=== PATIENT | female | born 1995 | race Caucasian/White ===

== ENCOUNTER 2017-11-07 14:13 | Outpatient (CLI) | payer MEDICAID, SELFPAY ==
[2017-11-07 14:28] VITALS: BMI 31.6
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
== END 2017-11-07 17:25 | disposition home or self-care (01) ==
LOC: WPOUT 14:20 → WP 14:20
PROVIDERS: Visit Provider Obstetrics & Gynecology
DX: Z04.1 Encounter for examination and observation following transport accident (principal); O76 Abnormality in fetal heart rate and rhythm complicating labor and delivery; Z3A.33 33 weeks gestation of pregnancy
CPT/HCPCS: 59025; 59050; 99218; G0378

== ENCOUNTER 2017-11-22 07:30 | Outpatient (CLI) | payer MEDICAID, SELFPAY ==
[2017-11-22 08:02] VITALS: BMI 31.4
--- NOTE | 2017-11-22 09:52 | PCM.HP.OB ---
- Problem List (1) False labor before 37 completed weeks of gestation in third trimester Status: Acute History Date of Admission: 11/22/17 Final CASEY: 12/24/17 Final CASEY Source: US <20 weeks Gestational age: 35 Weeks and 3 Days History of this : Patient presents reporting ctx since 0530 AM that got closer together and stronger. Patient is 35.3 weeks by LMP dating and confirmed by 1st trimester u/s. Patient denies any LOF or VB. Patient reports +FM. Pertinent Past Medical History: Hx depression and PP depression - had stopped medication at beginning of , restarted Zoloft at 19 weeks gestation. Allergies latex Allergy (Verified 04/27/17 20:18) Hives Zoloft 50mg PO daily PNV Smoking Status: Never smoker Alcohol: None Drug Use: none Number of Fetus(es): 1 Review of Systems Unable to obtain accurate/complete ROS d/t: Patient discharged to home prior to this provider seeing patient Physical Exam Vitals: NST Category I - baseline 130, moderate variability, no decels, + accels. Few irregular contractions on tocometer, 1 ctx mildly palpable ovr 30 minutes. See nurse note for vital signs and PE Abdomen: Appropriate for Gestational Age Presentation: Cephalic Cervix Dilation (cm): 1 Station: -3 Effacement (%): 0 - Exam done by RN 1/0%/-4 Assessment/Plan A: 22 y/o @ 35.3 wks, R/O PTL - false labor diagnosed P: 1) Discharge patient to home 2) PTL precautions reviewed 3) RTC at [facility] as scheduled for dileep Hayes CNM
--- NOTE | 2017-11-22 10:02 | HP.PCM_ITS ---
- Problem List (1) False labor before 37 completed weeks of gestation in third trimester Status: Acute History Date of Admission: 11/22/17 Final CASEY: 12/24/17 Final CASEY Source: US <20 weeks Gestational age: 35 Weeks and 3 Days History of this : Patient presents reporting ctx since 0530 AM that got closer together and stronger. Patient is 35.3 weeks by LMP dating and confirmed by 1st trimester u/ s. Patient denies any LOF or VB. Patient reports +FM. Pertinent Past Medical History: Hx depression and PP depression - had stopped medication at beginning of , restarted Zoloft at 19 weeks gestation. Allergies latex Allergy (Verified 04/27/17 20:18) Hives Zoloft 50mg PO daily PNV Smoking Status: Never smoker Alcohol: None Drug Use: none Number of Fetus(es): 1 Review of Systems Unable to obtain accurate/complete ROS d/t: Patient discharged to home prior to this provider seeing patient Physical Exam Vitals: NST Category I - baseline 130, moderate variability, no decels, + accels. Few irregular contractions on tocometer, 1 ctx mildly palpable ovr 30 minutes. See nurse note for vital signs and PE Abdomen: Appropriate for Gestational Age Presentation: Cephalic Cervix Dilation (cm): 1 Station: -3 Effacement (%): 0 - Exam done by RN 1/0%/-4 Assessment/Plan A: 22 y/o @ 35.3 wks, R/O PTL - false labor diagnosed P: 1) Discharge patient to home 2) PTL precautions reviewed 3) RTC at [facility] as scheduled for dileep Hayes CNM
== END 2017-11-22 09:00 | disposition home or self-care (01) ==
LOC: WPOUT 07:30 → WP 07:31
PROVIDERS: Visit Provider Obstetrics & Gynecology
DX: O47.1 False labor at or after 37 completed weeks of gestation (principal); O99.344 Other mental disorders complicating childbirth; F32.9 Major depressive disorder, single episode, unspecified; Z3A.35 35 weeks gestation of pregnancy; Z37.0 Single live birth
CPT/HCPCS: 59025; 99218; G0378

== ENCOUNTER 2017-12-14 17:10 | Outpatient (CLI) | payer MEDICAID, SELFPAY ==
[2017-12-14 17:30] VITALS: BMI 34.7
[2017-12-14 17:59] LABS: Hematocrit 30.9 % (37-47); Hemoglobin 10.2 g/dl (12.0-15.0); Mean Corpuscular Hgb 27.9 pg (27.0-32.0); Mean Corpuscular Volume 84.4 fL (81-99); Mean Platelet Vol. 10.2 fl (6.2-12.0); Platelet Count 200 K/mm3 (150-450); RBC Distribution Width CV 14.1 % (11.6-14.6); RBC Distribution Width SD 41.9 fl (35.1-43.9); Red Blood Count 3.66 M/mm3 (4.2-5.4); White Blood Count 11.1 K/mm3 (4.4-11.0)
[2017-12-14 18:00] LABS: Scan Indicated on CBC? Y/N NO
[2017-12-14 18:02] LABS: International Normalized Ratio 1.1; Prothrombin Time (Protime)PT. 14.3 SECONDS (11.7-14.9)
[2017-12-14 18:03] LABS: Partial Thromboplast Time 26.9 Seconds (24.1-36.2)
--- NOTE | 2017-12-14 18:10 | OB.TRI.NOTE ---
History of Present Illness Date of Service: 12/14/17 Reason For Visit: [facility] Date of Service: 12/14/17 Final CASEY: 12/24/17 Gestational age: 38 Weeks and 4 Days Home Medications Medication Instructions Recorded Pnv95/Ferrous Fumarate/FA 1 each PO DAILY #90 tablet 05/29/16 [ Formula] Sertraline HCl [Zoloft] 50 mg PO DAILY 11/22/17 Allergies latex Allergy (Verified 04/27/17 20:18) Hives NST - FHR Rate Baby A Baseline: 135 Variability:: Moderate Accelerations:: 15 x 15 Decelerations:: None NST Reactive:: Yes Uterine Activity:: quiet Impression/Plan Reactive NST for elevated BP in BP's & labs at [facility] normal NO evidence preE
[2017-12-14 18:12] LABS: Protein, Urine (Random) 18.8 mg/dL (<11.9); Protein:Creat Ratio 214 mg/g CRE (0-200)
--- NOTE | 2017-12-14 18:13 | OB.TRI.HP_ITS ---
History of Present Illness Date of Service: 12/14/17 Reason For Visit: [facility] Date of Service: 12/14/17 Final CASEY: 12/24/17 Gestational age: 38 Weeks and 4 Days Home Medications Medication Instructions Recorded Pnv95/Ferrous Fumarate/FA 1 each PO DAILY #90 tablet 05/29/16 [ Formula] Sertraline HCl [Zoloft] 50 mg PO DAILY 11/22/17 Allergies latex Allergy (Verified 04/27/17 20:18) Hives NST - FHR Rate Baby A Baseline: 135 Variability:: Moderate Accelerations:: 15 x 15 Decelerations:: None NST Reactive:: Yes Uterine Activity:: quiet Impression/Plan Reactive NST for elevated BP in BP's & labs at [facility] normal NO evidence preE
[2017-12-14 18:18] LABS: AST(SGOT) 13 U/L (15-37); Alanine Aminotransfer ALT/SGPT 11 U/L (13-56); Creatinine, Serum 0.56 mg/dL (0.55-1.02); EST Glomerular Filtration Rate 142 mL/min (>60); Est Glom Filt Rate - Afr Amer 172 mL/min (>60); Estimated Creatinine Clearance 116.89 ml/min; Uric Acid 5.1 mg/dL (2.6-6.0)
== END 2017-12-14 18:30 | disposition home or self-care (01) ==
LOC: WPOUT 17:22 → WP 17:22
PROVIDERS: Visit Provider Obstetrics & Gynecology
DX: O26.893 Other specified pregnancy related conditions, third trimester (principal); R03.0 Elevated blood-pressure reading, without diagnosis of hypertension; Z3A.38 38 weeks gestation of pregnancy
CPT/HCPCS: 59050; 82565; 82570; 84156; 84450; 84460; 84550; 85027; 85610; 85730; 99218; G0378

== ENCOUNTER 2017-12-16 22:40 | Outpatient (CLI) | payer MEDICAID, SELFPAY ==
[2017-12-16 23:14] VITALS: BMI 32.8
[2017-12-16] MEDS: Acetaminophen 500 MG Tablet 1000 MG PO (23:49)
[2017-12-17 00:15] LABS: Hematocrit 30.5 % (37-47); Hemoglobin 10.1 g/dl (12.0-15.0); International Normalized Ratio 1.1; Mean Corp Hgb Conc 33.1 g/gl (32-36); Mean Corpuscular Volume 84.5 fL (81-99); Mean Platelet Vol. 10.5 fl (6.2-12.0); Platelet Count 206 K/mm3 (150-450); Prothrombin Time (Protime)PT. 14.5 SECONDS (11.7-14.9); RBC Distribution Width CV 14.4 % (11.6-14.6); Red Blood Count 3.61 M/mm3 (4.2-5.4); Scan Indicated on CBC? Y/N NO; White Blood Count 11.5 K/mm3 (4.4-11.0)
[2017-12-17 00:16] LABS: Partial Thromboplast Time 26.5 Seconds (24.1-36.2)
[2017-12-17 00:22] LABS: Protein, Urine (Random) 8.3 mg/dL (<11.9); Protein:Creat Ratio 221 mg/g CRE (0-200)
[2017-12-17 00:30] LABS: AST(SGOT) 12 U/L (15-37); Alanine Aminotransfer ALT/SGPT 10 U/L (13-56); Creatinine, Serum 0.47 mg/dL (0.55-1.02); EST Glomerular Filtration Rate 174 mL/min (>60); Est Glom Filt Rate - Afr Amer 210 mL/min (>60); Estimated Creatinine Clearance 152.68 ml/min; Uric Acid 4.6 mg/dL (2.6-6.0)
--- NOTE | 2017-12-17 00:38 | OB.TRI.NOTE ---
History of Present Illness Date of Service: 12/17/17 Was patient seen by the physician?: Yes Reason For Visit: HEADACHE Date of Service: 12/17/17 Final CASEY: 12/24/17 Final CASEY Source: LMP Gestational age: 39 Weeks and 0 Days History of Present Illness: Presented this evening for headache. Patient complaint of headache that has been on and off throughout the day. Headache with some blurry vision bilaterally but no scotoma. Headache has also been occuring over the last week. Was seen in L&D on 12/14/17 and D/C home, labs normal. Limited water intake today and did not take anything for relief. Rates 5/10. Denies any contractions, vaginal bleeding, leakage of fluid. Home Medications Medication Instructions Recorded Pnv95/Ferrous Fumarate/FA 1 each PO DAILY #90 tablet 05/29/16 [ Formula] Sertraline HCl [Zoloft] 50 mg PO DAILY 11/22/17 Allergies latex Allergy (Verified 12/16/17 23:16) Hives Physical Exam General: Alert, Oriented x3, No apparent distress Cardiovascular: Regular rate, Regular Rhythm, No murmurs Lungs: Clear to auscultation, No rhonchi, No wheeze Abdomen: Bowel Sounds Present, Soft, Non Tender, Gravid, - - No RUQ pain Extremities:: No edema, Deep tendon reflexes - +2/4 bilateal patellar. Clonus negative bilaterally. Presentation: Cephalic Cervix Dilation (cm): 4 Station: -2 Effacement (%): 40 NST - FHR Rate Baby A Baseline: 135 Variability:: Moderate Accelerations:: 15 x 15 Decelerations:: None NST Reactive:: Yes FHR Category:: Category I Uterine Activity:: Irregular Impression/Plan A: 22 year old at 38w6d by LMP Headache P: 1) Evaluated patient in triage. At this time, patient has no signs of pre-eclampsia. CMP, uric acid, CBC, pro/crea ratio all normal limits. 2) PO hydrated, Tylenol 1000mg PO once, Zofran 4mg ODT 3) Reviewed Pre-E precautions and labor instructions reviewed and when to call. 4) Follow up in office on Monday.
--- NOTE | 2017-12-17 00:49 | OB.TRI.HP_ITS ---
History of Present Illness Date of Service: 12/17/17 Was patient seen by the physician?: Yes Reason For Visit: HEADACHE Date of Service: 12/17/17 Final CASEY: 12/24/17 Final CASEY Source: LMP Gestational age: 39 Weeks and 0 Days History of Present Illness: Presented this evening for headache. Patient complaint of headache that has been on and off throughout the day. Headache with some blurry vision bilaterally but no scotoma. Headache has also been occuring over the last week. Was seen in L&D on 12/14/17 and D/C home, labs normal. Limited water intake today and did not take anything for relief. Rates 5/10. Denies any contractions , vaginal bleeding, leakage of fluid. Home Medications Medication Instructions Recorded Pnv95/Ferrous Fumarate/FA 1 each PO DAILY #90 tablet 05/29/16 [ Formula] Sertraline HCl [Zoloft] 50 mg PO DAILY 11/22/17 Allergies latex Allergy (Verified 12/16/17 23:16) Hives Physical Exam General: Alert, Oriented x3, No apparent distress Cardiovascular: Regular rate, Regular Rhythm, No murmurs Lungs: Clear to auscultation, No rhonchi, No wheeze Abdomen: Bowel Sounds Present, Soft, Non Tender, Gravid, - - No RUQ pain Extremities:: No edema, Deep tendon reflexes - +2/4 bilateal patellar. Clonus negative bilaterally. Presentation: Cephalic Cervix Dilation (cm): 4 Station: -2 Effacement (%): 40 NST - FHR Rate Baby A Baseline: 135 Variability:: Moderate Accelerations:: 15 x 15 Decelerations:: None NST Reactive:: Yes FHR Category:: Category I Uterine Activity:: Irregular Impression/Plan A: 22 year old at 38w6d by LMP Headache P: 1) Evaluated patient in triage. At this time, patient has no signs of pre- eclampsia. CMP, uric acid, CBC, pro/crea ratio all normal limits. 2) PO hydrated, Tylenol 1000mg PO once, Zofran 4mg ODT 3) Reviewed Pre-E precautions and labor instructions reviewed and when to call. 4) Follow up in office on Monday.
[2017-12-17] MEDS: Ondansetron ODT 4 MG Tablet PO (00:56)
[2017-12-17 01:15] VITALS: RESP 18
== END 2017-12-17 01:15 | disposition home or self-care (01) ==
LOC: WPOUT 23:13 → WP 23:23
PROVIDERS: Advanced Practice Midwife; Visit Provider Obstetrics & Gynecology
DX: O26.893 Other specified pregnancy related conditions, third trimester (principal); R51 Headache; Z3A.38 38 weeks gestation of pregnancy
CPT/HCPCS: 36415; 59025; 59050; 82565; 82570; 84156; 84450; 84460; 84550; 85027; 85610; 85730; 99218; G0378

== ENCOUNTER 2017-12-27 20:05 | Inpatient (IN) | payer MEDICAID, SELFPAY ==
[2017-12-27 15:46] VITALS: BMI 32.5
--- NOTE | 2017-12-27 18:09 | OB.TRI.HP_ITS ---
History of Present Illness Date of Service: 12/27/17 Was patient seen by the physician?: Yes Reason For Visit: DECREASED MOVEMENT Date of Service: 12/27/17 Final CASEY: 12/24/17 Final CASEY Source: US <20 weeks Gestational age: 40 Weeks and 3 Days History of Present Illness: Patient presents to triage today reporting decreased movement. Patient reports her grandmother recently and patient has felt very stressed. Patient stopped her Zoloft medication on Monday also noting, I've just forgotten to take it. Patient denies any cramping, contractions, vaginal bleeding or loss of amniotic fluid. Home Medications Medication Instructions Recorded Pnv95/Ferrous Fumarate/FA 1 each PO DAILY #90 tablet 05/29/16 [ Formula] Sertraline HCl [Zoloft] 50 mg PO DAILY 11/22/17 Allergies latex Allergy (Verified 12/27/17 15:47) Hives - Pertinent Past Medical History Pertinent Past Medical History: Hx of Depression and PP Depression after her last delivery - patient has been taking Zoloft 50mg PO daily, last dose Monday Patient had one transient episode of HTN of that occurred at 38 weeks - prolonged triage at L+D, preeclampsia labs and urine PC ratio drawn and were WNL. Physical Exam Vitals: See Nursing Note for Vital Sign - patient was normotensive and afebrile FHT baseline 140, moderate variability, + accels, no decels Ctx irregular q 10-20 minutes, mildly palpable General: Alert, Oriented x3, No apparent distress Cardiovascular: Regular rate, Regular Rhythm Lungs: Clear to auscultation Abdomen: Gravid, Appropriate for Gestational Age Extremities:: No edema Estimated gestational size: Appropriate for gestational size - Baby is ROT by Dax's Presentation: Cephalic - confirmed by ultrasound as head overriding pubic bone. Cervix Dilation (cm): 4.5 Station: -3 Effacement (%): 40 NST - FHR Rate Baby A Baseline: 140 Variability:: Moderate Accelerations:: 15 x 15 Decelerations:: None NST Reactive:: Yes, Appropriate for gestational age FHR Category:: Category I Uterine Activity:: Irregular Impression/Plan A: 22 y/o @ 40.3 weeks, Decreased Movement, Category I FHT P: 1 ) Consultation with Dr. Spencer - this is the 3rd report from this patient about decreased movement at the end of her . Recommendation from Dr. Spencer to keep patient at this time and plan to induce labor. 2) Anticipate admission and pitocin IV induction per protocol once entry level staff accountant to care for patient is available. Shoshana Hayes CNM
--- NOTE | 2017-12-27 21:11 | PCM.HP.OB ---
- Problem List (1) Decreased movement Status: Acute Qualifiers: Fetus number: single or unspecified fetus Trimester: third trimester Qualified Code(s): O36.8130 - Decreased movements, third trimester, not applicable or unspecified History Date of Admission: 12/27/17 Final CASEY: 12/24/17 Final CASEY Source: US <20 weeks Gestational age: 40 Weeks and 3 Days History of this : Patient reported decreased movement today. This is the 3rd evaluation of reported decreased movement for this patient. Patient denies VB, LOF or regular cramping/contractions. Pertinent Past Medical History: Hx of Depression and PP Depression - patient takes Zoloft 50mg PO daily. Last dose was on Monday per patient report. Patient's grandmother recently and patient has been forgetting to take the medication. Allergies latex Allergy (Verified 12/27/17 15:47) Hives PNV, Zoloft 50mg PO daily Smoking Status: Never smoker Alcohol: None Drug Use: none Number of Fetus(es): 1 Review of Systems Constitutional: Denies: Chills, Fever, Weight Change HEENT: Denies: Head Aches, Sinus Congestion, Sinus Drainage Cardiovascular: Denies: Chest Pain, Palpitations Respiratory: Denies: Cough, Shortness of breath at rest, Sputum production Gastrointestinal: Denies: Abdominal Pain, Nausea, Vomiting Genitourinary: Denies: Dysuria Gynecological: Denies: Breast symptoms, Vaginal discharge Musculoskeletal: Denies: Joint Pain, Joint Tenderness Skin: Denies: Rash, Wounds Neurological: Denies: Numbness, Tingling, Focal weakness Psychiatric: Denies: Anxiety, Depression, Homicidal Ideations, Suicidal Ideations Hematologic/ Lymphatic: Denies: Easy Bruising, Easy Bleeding Physical Exam General: Alert, Oriented x3, No apparent distress Cardiovascular: Regular rate, Regular Rhythm Lungs: Clear to auscultation Abdomen: Bowel Sounds Present, Gravid Extremities:: No edema Estimated gestational size: Appropriate for gestational size Presentation: Cephalic Cervix Dilation (cm): 4.5 - Confirmed cephalic by limited bedside u/s Station: -3 Effacement (%): 40 Assessment/Plan Active and Suspected Problems Decreased movement (Acute) A: 22 y/o @ 40.3 weeks, decreased movement, category I FHT P: 1) Admit patient, start IV at this time. 2) T+S, CBC to be drawn 3) Pitocin per protocol for labor induction to be started now 4) Anticipate 5) Dr. Spencer aware of induction and plan of care and is in agreement at this time. Shoshana Hayes CNM
[2017-12-27] MEDS: Lactated Ringers 1,000 ML 50 ML IV (21:50)
[2017-12-27] MEDS: Oxytocin 30 units/NS 500 ml 30 UNITS/500 ML IV.SOLN IV (22:00)
[2017-12-27 22:04] LABS: Hematocrit 32.1 % (37-47); Hemoglobin 10.3 g/dl (12.0-15.0); Mean Corp Hgb Conc 32.1 g/gl (32-36); Mean Corpuscular Hgb 27.2 pg (27.0-32.0); Mean Corpuscular Volume 84.9 fL (81-99); Mean Platelet Vol. 10.3 fl (6.2-12.0); Platelet Count 198 K/mm3 (150-450); RBC Distribution Width SD 46.8 fl (35.1-43.9); Red Blood Count 3.78 M/mm3 (4.2-5.4); Scan Indicated on CBC? Y/N NO
[2017-12-28] MEDS: Lactated Ringers 1,000 ML 50 ML IV ×4 (00:57→14:29)
--- NOTE | 2017-12-28 04:48 | PCM.PN.BLA ---
Progress Note S: Update received from nursing staff, patient tolerating contractions well. Patient denies LOF or feelings of rectal pressure. IV pitocin continues to infuse. O: VSS, Afebrile FHT baseline 130, moderate variability, +accels, no decels Ctx q 2-4 minutes, palpate moderately strong, Pitocin at 12 milliunits at this time SVE = 5.5/75/-3, head now palpable but ballotable A: 22 y/o @ 40.3 weeks, IOL for decreased FM at term, Pitocin Induction, Category I FHT P: 1) Continue present management 2) Consider AROM when head more engaged in pelvis 3) Anticipate Shoshana Hayes CNM
--- NOTE | 2017-12-28 05:50 | PCM.PN.BLA ---
Progress Note Addendum: SVE done per patient wishes - SVE = 5.5/70/-2 now, head easily felt against cervix. AROM for clear fluid. Patient elects NCB, may consider nitrous oxide for pain relief. Declines epidural. Pitocin remains at 12 milliunits at this time. Shoshana Hayes CNM
[2017-12-28] MEDS: Ondansetron 4 MG/2 ML Vial IV (06:15)
[2017-12-28] MEDS: fentaNYL-bupivacaine (epidural) 100 ML BAG EPIDURAL ×3 (07:48→17:04)
--- NOTE | 2017-12-28 07:58 | PCM.PN.BLA ---
Progress Note Patient getting comfortable with epidural cvx - /-1 FSE & IUPC placed fhts 140 with mod variability, accels, occ variables; overall reassuring tocos Q 2 min A&P: continue pitocin induction
[2017-12-28] MEDS: Amnioinfusion- 0.9% NS 1,000 ML IV.SOLN. 200 ML INTRA-UTER (08:16)
--- NOTE | 2017-12-28 13:43 | PCM.PN.BLA ---
Progress Note S: Patient comfortable with epidural O: cvx - 6-7/80/-1 per RN fhts 140 with mod variability, variables, accels - overall reassuring tocos Q2-3 min A&P: cont pit induction cont amnioinfusion
[2017-12-28] MEDS: Oxytocin 30 units/NS 500 ml 30 UNITS/500 ML IV.SOLN 334 UNITS IV (19:27)
--- NOTE | 2017-12-28 19:48 | PCM.OB.VAG ---
Vaginal Delivery Maternal Presentation: Medically Indicated Induction Amniotic Membrane Rupture Type: Artificial Amniotic Fluid Description: Clear Final CASEY: 12/24/17 Gestational age: 40 Weeks and 4 Days Date of Procedure: 12/28/17 Pre-Operative Diagnosis: post-dates, decreased FM Post-Operative Diagnosis: post-dates, decreased FM Surgery/ Procedure Performed: Spontaneous Vaginal Delivery Type of Anesthesia: Epidural Description of Procedure: Patient c/c/+2 and put in stirrups. She was prepped & draped. She pushed well to deliver head. Gentle traction was placed on head to allow delivery of the anterior & posterior shoulders. No excess traction placed on head. Body delivered easily & infant placed on maternal abdomen. 3vc clamped & cut in delayed fashion. Placenta delivered with gentle traction. Good uterine tone obtained. Presentation: DANIEL Placental Delivery Description: Expressed Placenta Disposition: [facility] Cord Vessel Description: 3 Vessels Cord Entanglement: Around neck x 1, loose Estimated Blood Loss: 200ml A gender: Female (1 minute): 8 (5 minute): 9 Episiotomy Description: None Laceration: 1st degree - vaginal - repaired with 3-0 vicryl Medications given after delivery: IV Pitocin Complications: None
[2017-12-28] MEDS: Oxytocin 30 units/NS 500 ml 30 UNITS/500 ML IV.SOLN 167 UNITS IV (19:57)
[2017-12-28] MEDS: 0.9% Saline Lock 10 ML Syringe IV (21:09)
[2017-12-28] MEDS: Ibuprofen 600 MG Tablet PO (23:04)
[2017-12-29] VITALS (7 sets, daily range): BP systolic 113–150; BP diastolic 62–85; PULSE 84–118; RESP 16–20; TEMP 36.3–37.1; O2SAT 95–98
[2017-12-29] MEDS: Ibuprofen 600 MG Tablet PO ×3 (06:38→20:32)
--- NOTE | 2017-12-29 09:02 | PCM.PROGNOTE ---
Patient Problems: Active and Suspected Problems Decreased movement (Acute) Subjective: Doing well per patient and nursing staff. Ambulating and taking PO without difficulty. Voiding and passing flatus. without difficulty. Denies headache, visual changes, chest pain, shortness of breath, leg pain, increased vaginal bleeding or clots. Discharge home tomorrow. - Physical Exam General: Alert, Oriented x3, Cooperative Lungs: Clear to auscultation, Normal air movement, No rhonchi, No wheeze Cardiovascular: Regular rate, Regular Rhythm, No murmurs Abdomen: Bowel Sounds Present, Soft, Non Tender, - - Fundus firm 2 below U Extremities: No edema Psych/Mental Status: Normal Affect, Appropriate Vital Signs Temp Pulse Resp BP Pulse Ox 98.7 F 84 16 113/62 98 12/29/17 04:00 12/29/17 04:00 12/29/17 04:00 12/29/17 04:00 12/29/17 00:08 Oxygen Delivery Method Room Air Weight: 183 lb 13.848 oz Body Mass Index (BMI) 32.5 Intake and Output for Last 24 Hours 12/27/17 12/28/17 12/29/17 23:59 23:59 23:59 Intake Total 8162 / 8162 Output Total 3400 / 3400 900 / 900 Balance 4762 / 4762 -900 / -900 Medical Necessity - Tobacco Use Smoking Status: Never smoker Assessment/Plan Active and Suspected Problems Decreased movement (Acute) A: PPD #1 1st degree perineal laceration P: 1) Routine PP orders 2) Plan to discharge home tomorrow
--- NOTE | 2017-12-29 09:07 | DCINST_ITS ---
Discharge Diet: No Restrictions Discharge Activity: Return to Normal Activity, May not drive while taking narcotic pain medications., May Shower May resume sexual activity in: 4-6 weeks Weight Bearing Status: Weight bearing as tolerated Call your doctor if your incision/area has: Continuous Slow Oozing, Sudden Increased Bleeding, Increased Pain/ Swelling, Increased Redness, Foul Smelling Discharge, Swelling at the incision site Call your doctor if you observe: Fever of 101 or Higher, Numbness or Tingling, Change in Color, Inability to urinate, Inability to have a bowel movement, Using more than one pad per hour, Shortness of breath, Dizziness, Fainting spells, Swelling in the ankles, Chest pain, Prolonged hiccoughing, Increased palpitations (irregular heartbeat), Calf discomfort, Uncontrolled pain Additional Instructions: If you experience any of the following, contact your healthcare provider. * Bleeding that soaks a pad every hour for 2 hours * Fever 100.4 or higher * Unrelieved incision or abdominal pain * Swelling, redness, discharge or bleeding from your incision or episiotomy site * Your incision begins to separate * Problems urinating (including inability to urinate or burning while urinating) . * Visual changes * Severe headache * Flu-like symptoms * Pain or redness in one of both of your breasts * Pain, warmth, tenderness or swelling in your legs, especially the calf area * Frequent nausea and vomiting * Symptoms of depression or anxiety If you experience any of the following, call 911 or go to the nearest Emergency Room. * Chest pain * Problems breathing * Seizure activity * Partial or complete paralysis of a body part, slurred speech, weakness or drooping of the face, or a sudden inability to walk or hold your balance Allergies/Adverse Reactions: Allergies latex Allergy (Verified 12/27/17 15:47) Hives Medications to take at Discharge Pnv95/Ferrous Fumarate/FA [ Formula] 1 each PO DAILY #90 tablet Sertraline HCl [Zoloft] 50 mg PO DAILY 11/22/17 Please Follow Up With: Karley Spencer When: Call to make an appointment with your doctor in 6 weeks. If you had elevated Blood Pressure or 4th degree laceration you will need to be seen in 2 weeks. Primary Care Physician: Care Physician,No Primary [Primary Care Provider] -
[2017-12-29] MEDS: Sertraline 50 MG Tablet PO (10:17)
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
[2017-12-30 01:50] VITALS: BP 112/67; PULSE 75; RESP 18; TEMP 36.7; O2SAT 96
--- NOTE | 2017-12-30 07:56 | PCM.PN.OB ---
Patient Problems: Active and Suspected Problems Decreased movement (Acute) Subjective: pt seen at bedside, doing well. pt reports good pain control. lochia mild. - Physical Exam General: Alert, Oriented x3 Abdomen: Soft, Non Tender, Non-Distended, - - fundus firm Extremities: No Calf Tenderness Vital Signs Temp Pulse Resp BP Pulse Ox 98.0 F 75 18 112/67 96 12/30/17 01:50 12/30/17 01:50 12/30/17 01:50 12/30/17 01:50 12/30/17 01:50 Oxygen Delivery Method Room Air Weight: 83.4 kg Body Mass Index (BMI) 32.5 Intake and Output for Last 24 Hours 12/28/17 12/29/17 12/30/17 23:59 23:59 23:59 Intake Total 8162 / 8162 Output Total 3400 / 3400 900 / 900 Balance 4762 / 4762 -900 / -900 Medical Necessity - Tobacco Use Smoking Status: Never smoker Assessment/Plan Active and Suspected Problems Decreased movement (Acute) PPD#2, doing well routine care dc home
[2017-12-30 08:34] VITALS: BP 129/76; PULSE 89; RESP 18; TEMP 36.8; O2SAT 98
[2017-12-30] MEDS: Ibuprofen 600 MG Tablet PO (08:55)
--- NOTE | 2018-01-01 15:12 | CASEMGMT ---
Social Work - Labor and Delivery Unit Referral to [facility] in [place], as per discussion with MOB on Monday12-29-17. Spoke with Radha at [facility] counseling agency for referral. Radha will call MOB to set up appointment. No other services requested or indicated. -DEMAR Santiago, COMMUNITY CENTER WORKER
--- NOTE | 2018-01-02 21:21 | NURSING ---
late entry for 12/28/17 12/28/17 2300 Epidural cath d/c'd with blue tip intact. pt tolerated well
== END 2017-12-30 09:45 | disposition home or self-care (01) | DRG 373 ==
LOC: WP 12-28 12:41 → WPOUT 12-28 12:41
PROVIDERS: Advanced Practice Midwife; Admitting Provider Obstetrics & Gynecology; Visit Provider Obstetrics & Gynecology
DX: O36.8130 Decreased fetal movements, third trimester, not applicable or unspecified (principal); O48.0 Post-term pregnancy; O70.0 First degree perineal laceration during delivery; O69.81X0 Labor and delivery complicated by cord around neck, without compression, not applicable or unspecified; O99.344 Other mental disorders complicating childbirth; F32.9 Major depressive disorder, single episode, unspecified; F41.9 Anxiety disorder, unspecified; Z3A.40 40 weeks gestation of pregnancy; Z37.0 Single live birth
CPT/HCPCS: 59025; 59050; 76815; 85027; 86850; 86900; 99218; J7030; J7120; A4216; G0378; J2405

== ENCOUNTER → 2019-12-18 13:40 | Outpatient (CLI) | payer MEDICAID, SELFPAY ==
[2019-12-17 14:27] VITALS: BMI 31.6
--- NOTE | 2019-12-18 13:48 | US_ITS ---
STUDY: SECOND AND THIRD TRIMESTER OBSTETRICAL ULTRASOUND REASON FOR EXAM: Female, 24 years old. Anatomy scan. LMP: August 03, 2019. TECHNIQUE: Transabdominal TECHNICAL QUALITY: Adequate. PRIOR ULTRASOUND: None. FINDINGS: There is a single intrauterine fetus. The fetus is in a cephalic presentation. There is demonstrated cardiac activity with a heart rate of 146 bpm. There is a normal amniotic fluid volume. The largest amniotic fluid pocket measures 3.0 cm. The placenta is posterior in location and is not low lying. There are Grade 0 placental changes. The cervix measures 4.11 cm in length. The bilateral adnexal regions are normal. BIOMETRY: BPD: 4.39 cm: 19 weeks, 2 days HC: 16.59 cm: 19 weeks, 3 days AC: 13.26 cm: 18 weeks, 6 days FL: 2.96 cm: 19 weeks, 1 days CI: 78 FL/BPD: 67 FL/HC: FL/AC: 22 HC/AC: 1.25 age by current US: 19 weeks, 2 days. CASEY by current US: May 11, 2020. Estimated weight: 267 grams, +/- 39 grams, 17 %. Age by LMP: 19 weeks, 4 days. CASEY by LMP: May 11, 2020. ANATOMY: Gender: Indeterminant Cranium: Normal lateral ventricles. Normal choroid plexus. Normal cerebellum. Normal cisterna magna. Normal face, nose and lips. Chest: Normal 4-chamber heart. Abdomen/Pelvis: Normal diaphragm. Normal stomach. Normal abdominal wall. Normal cord insertion. Normal 3 vessel cord. Normal kidneys. Normal bladder. Spine: Normal cervical spine. Normal thoracic spine. Normal lumbar spine. Normal sacrum. Extremities: Normal bilateral upper extremities. Normal bilateral lower extremities. US/OB Anatomy Scan IMPRESSION: 1. Live single intrauterine at 19 weeks, 2 days. CASEY is May 11, 2020. 2. EFW 267 g. 3. Adequate amniotic fluid. 4. Posterior grade 0 placenta. 5. Vertex presentation. 6. No evidence of anatomic abnormality. Electronically Signed: Ashkan Mendez DO at 16:40 EDT Tel [phone], Service support ,
== END ==
PROVIDERS: Referring Provider Obstetrics & Gynecology; Visit Provider Obstetrics & Gynecology
DX: Z34.81 Encounter for supervision of other normal pregnancy, first trimester (principal)
CPT/HCPCS: 76805

== ENCOUNTER 2021-04-09 11:03 | Emergency (ER) | payer MEDICAID, SELFPAY ==
[2019-12-17 14:27] VITALS: BMI 31.6
[2021-04-09 11:04] VITALS: BP 122/62; PULSE 95; RESP 14; TEMP 36; O2SAT 97; BMI 31.4
--- NOTE | 2021-04-09 11:52 | CT_ITS ---
STUDY: CT ABDOMEN AND PELVIS WITHOUT CONTRAST REASON FOR EXAM: Female, 25 years old. Right flank pain. RADIATION DOSAGE (If Supplied By Facility): CTDIvol = ( 8.62 ) mGy, DLP = ( 454.59 ) mGycm TECHNIQUE: Transaxial images were obtained from the dome of the diaphragm to the symphysis pubis without oral contrast, and without intravenous contrast. Sagittal and coronal images were reconstructed. Individualized dose optimization techniques were used for this CT. COMPARISON: None. FINDINGS: The visualized lung bases are unremarkable. The visualized portions of the heart are within normal limits. Normal liver. Normal gallbladder and extrahepatic biliary system. Normal spleen. Normal pancreas. Normal bilateral adrenal glands. There is a 1 cm x 0.6 cm calculus in the right renal pelvis. There is evidence of a 7.5 mm calculus in the posterior calyx of the upper pole of the right kidney. Normal left kidney. Normal visualized stomach. Normal small intestine. Normal colon. The appendix is visualized and appears normal. Normal abdominal aorta. Normal inferior vena cava. Normal retroperitoneum. Normal urinary bladder. There is a small umbilical hernia containing fat. Minimal levoscoliosis. CT/Abdomen/Pelvis without Cont IMPRESSION: 1 cm x 0.6 cm calculus is seen in the right renal pelvis with mild right hydronephrosis. Electronically Signed: Fausto Avendano MD at 14:24 EDT , Service support ,
--- NOTE | 2021-04-09 11:53 | EDS_ITS ---
HPI History of Present Illness Chief Complaint: Flank Pain Narrative Narrative: 25-year-old female presenting with left flank pain. She states that this started about 2 weeks ago. It has been intermittent since then and is now more constant. Last night she states that she had trouble finding position of comfort and she experienced nausea. She has no history of kidney stones. She denies dysuria but states her urine has been dark. She states that when she drinks pop or tea it makes her pain worse and if she drinks water it does not hurt. She denies fever or chills. She denies change in bowel habits. PFSH PFSH Home Medications hydrocodone-acetaminophen 1 tab PO Q6H PRN PRN 3 Days #12 tablet 04/09/21 [Rx Last Taken Unknown] ondansetron 8 mg PO Q8H PRN PRN #20 tab 04/09/21 [Rx Last Taken Unknown] sulfamethoxazole-trimethoprim [Bactrim DS] 1 tab PO Q12H 10 Days #20 tab 04/09/21 [Rx Last Taken Unknown] Allergy/AdvReac Type Severity Reaction Status Date / Time latex Allergy Hives Verified 04/09/21 11:04 Social History Smoking Status: Never smoker ROS ROS ED Constitutional Constitutional ED: Denies chills, fever(s) or subjective Eyes Eyes: Denies blurry vision or diplopia ENT ENT ED: Denies rhinorrhea or sore throat Cardiovascular Cardiovascular: Denies chest pain or palpitations Respiratory/Chest Respiratory/Chest: Denies cough or dyspnea Gastrointestinal Gastrointestinal: Reports abdominal pain and nausea; Denies constipation or diarrhea Genitourinary Genitourinary ED: Reports other Details: Darkened urine Musculoskeletal Musculoskeletal: Denies arthralgias or myalgias Integumentary Denies abscess or rash Neurologic Neurologic: Denies headache(s) or weakness Psychiatric Psychiatric: Denies anxiety or depression EXAM Physical Exam Const Vital Signs: 04/09/21 11:04 04/09/21 13:10 04/09/21 15:20 Temperature 96.8 F L 96.9 F L Temperature Source Temporal Temporal Pulse Rate 95 90 Respiratory Rate 14 16 16 Blood Pressure 122/62 H 114/77 Blood Pressure Mean 82 89 Pulse Ox 97 98 Oxygen Delivery Method Room Air Room Air Positive well nourished General Appearance ED: NAD HEENT Reports moist mucous membranes Negative for trauma Eyes PERRL and EOMs intact bilaterally Neck no lymphadenopathy and supple Resp normal respiratory effort and clear to auscultation bilaterally Cardio regular rate and regular rhythm GI non-distended Palpation: soft and tender other (Right flank) Back/Spine no CVA tenderness Neuro oriented x3 and CN's II-XII intact bilaterally Sensorium / Orientation: alert Psych mental status grossly normal Skin no rashes or lesions noted and no wounds MDM MDM MDM Narrative Medical decision making narrative: Patient presenting with right flank pain which has been present for 2 weeks but more persistent over the last couple of days. She has not had a history of kidney stone. She is complaining of dark urine. Patient's lab work shows that she has no leukocytosis and her hemoglobin hematocrit are stable. Renal function is normal. On exam she has mild pain to palpation. She requested no pain medication or nausea medicine while she was here. Her vital signs are stable and she is afebrile. I did obtain a urinalysis which is positive for UTI and sent this for culture. Patient had CT abdomen pelvis without contrast which shows a 1 cm x 0.6 cm calculus in the right renal pelvis. Since we do not have urology director correctional agency today I did make a call to Dr. SHARPE at [facility] who felt that the patient had normal lab work and normal vital signs and did not look toxic that he could follow-up with her Monday. He recommended starting her on Bactrim with first dose in the ED. She was provided [place] and Zofran as needed. She was counseled that if she starts to have fever, nausea vomiting, intractable pain she should return to the ER immediately. She was also counseled that he will see her in office on Monday and plans to do shockwave lithotripsy. He requested a KUB which on my interpretation shows no acute abdominal pathology. A CD with her CT and her KUB were sent with her at his request. Impression: 1. Pyelonephritis 2. Right 1 cm x 0.6 cm kidney stone Lab Data Attestation: I reviewed the patient's lab results. Labs: Laboratory Results - last 24 hr 04/09/21 04/09/21 04/09/21 11:15 11:25 11:25 WBC 6.4 RBC 4.63 Hgb 13.1 Hct 40.6 MCV 87.7 MCH 28.3 MCHC 32.3 RDW Std Deviation 40.2 RDW Coeff of Rylie 12.5 Plt Count 197 MPV 10.7 Immature Gran % (Auto) 0.300 Neut % (Auto) 64.6 Lymph % (Auto) 27.0 [place] % (Auto) 7.0 Eos % (Auto) 0.8 Baso % (Auto) 0.3 Absolute Neuts (auto) 4.1 Absolute Lymphs (auto) 1.73 Nucleated RBC % 0 Sodium 140 Potassium 3.5 Chloride 106 Carbon Dioxide 25.0 Anion Gap 9 BUN 12 Creatinine 0.85 Estim Creat Clear Calc 82.24 Est GFR (MDRD) Af Amer 103 Est GFR (MDRD) Non-Af 85 BUN/Creatinine Ratio 14.1 Glucose 108 H Calcium 8.9 Urine Color Yellow Urine Clarity Turbid Urine pH 6.0 Ur Specific [place] 1.020 Urine Protein 30 H Urine Glucose (UA) Normal Urine Ketones Negative Urine Occult Blood 250 H Urine Nitrite Positive H Urine Bilirubin Negative Urine Urobilinogen Normal Ur Leukocyte Esterase 500 H Urine RBC 10-25 SEEN Urine WBC 50-100 SEEN Ur Squamous Epith Cells 0-5 SEEN Urine Bacteria 4+ Urine Mucus 0 SEEN Urine Test Negative Radiography Diagnostic Testing: Radiology Impression Abdomen/Pelvis CT 04/09/21 11:52 IMPRESSION: 1 cm x 0.6 cm calculus is seen in the right renal pelvis with mild right hydronephrosis. Electronically Signed: Fausto Avendano MD at 14:24 EDT , Service support , Discharge Plan Triage Chief Complaint: Flank Pain ED Provider: Bony Haney Dx/Rx/DC Orders Instructions: ED Pyelonephritis, Female (Adult), ED Kidney Stone w/ Colic Prescriptions: New hydrocodone-acetaminophen 5-325 mg tablet 1 tab PO Q6H PRN PRN (Reason: Pain) 3 Days Qty: 12 RF: 0 ondansetron 4 mg tablet,disintegrating 8 mg PO Q8H PRN PRN (Reason: Nausea) Qty: 20 RF: 0 sulfamethoxazole-trimethoprim [Bactrim DS] 800-160 mg tablet 1 tab PO Q12H 10 Days Qty: 20 RF: 0 Primary Care Provider: Care PhysicianAntonia Primary Referrals: John Sharpe [Other] - As soon as possible Care Physician,No Primary [Primary Care Provider] - Disposition Disposition: Home, Self Care
[2021-04-09 12:07] LABS: Absolute Lymphocyte Count 1.73 X10^3/uL (0.83-4.51); Absolute Neutrophil Count 4.1 X10^3/uL (2.0-7.7); Basophil# 0.02 X10^3/uL; Basophil% 0.3 % (0-1); Eosinophil# 0.05 X10^3/uL; Eosinophils% 0.8 % (0-5); Hematocrit 40.6 % (37-47); Hemoglobin 13.1 g/dL (12.0-15.0); Lymphocyte # 1.73 X10^3/ul (0.83-4.51); Mean Corp Hgb Conc 32.3 g/dL (32-36); Mean Corpuscular Hgb 28.3 pg (27.0-32.0); Mean Corpuscular Volume 87.7 fL (81-99); Mean Platelet Vol. 10.7 fl (6.2-12.0); Monocyte# 0.45 X10^3/uL; NRBC Flagged by Analyzer 0 % (0-5); Neutrophil # 4.13 X10^3/uL (2.7-7.7); Neutrophil % 64.6 % (47-70); Platelet Count 197 K/mm3 (150-450); RBC Distribution Width CV 12.5 % (11.6-14.6); RBC Distribution Width SD 40.2 fl (35.1-43.9); Red Blood Count 4.63 M/mm3 (4.2-5.4); White Blood Count 6.4 K/mm3 (4.4-11.0)
[2021-04-09 12:17] LABS: Anion Gap 9 (5-15); BUN 12 mg/dL (7-18); BUN/Creat Ratio 14.1 RATIO (10-20); Calcium,Total 8.9 mg/dL (8.5-10.1); Chloride 106 mmol/L (98-107); Creatinine, Serum 0.85 mg/dL (0.55-1.02); EST Glomerular Filtration Rate 85 mL/min (>60); Est Glom Filt Rate - Afr Amer 103 mL/min (>60); Estimated Creatinine Clearance 82.24 ml/min; Glucose 108 mg/dL (74-106); Potassium 3.5 mmol/L (3.5-5.1); Sodium Level 140 mmol/L (136-145)
[2021-04-09 12:52] LABS: Mucous, Urine 0 SEEN /hpf (<or=2+)
[2021-04-09 13:08] LABS: Color, Urine Yellow (Yellow); Glucose, Dipstick Normal (Normal); Ketone-Dipstick Negative (Negative); Leukocyte Esterase-Dipstick 500 /ul (Negative); Nitrite-Dipstick Positive (Negative); Occult Blood-Urine 250 /ul (Negative); Protein-Dipstick 30 mg/dl (Negative); Urine Bilirubin Dipstick Negative (Negative); Urine Clarity Turbid (Clear); Urine Urobilinogen Normal (Normal)
[2021-04-09 13:10] VITALS: RESP 16
[2021-04-09 13:43] LABS: White Blood Cells 50-100 SEEN /hpf (0-5)
[2021-04-09 13:44] LABS: Bacteria 4+ /hpf (None Seen); Internal QC Validated? YES +Cl - CLEAR BKGD; Red Blood Cells-Urine 10-25 SEEN /hpf (0-5); Squamous Epithelial Cells - UA 0-5 SEEN /hpf (5-10)
[2021-04-09 13:45] LABS: Pregnancy, Urine Negative Negative
[2021-04-09 15:20] VITALS: BP 114/77; PULSE 90; RESP 16; TEMP 36.1; O2SAT 98
--- NOTE | 2021-04-09 15:45 | RAD_ITS ---
STUDY: X-RAY - ABDOMEN/PELVIS REASON FOR EXAM: Female, 25 years old. Right flank pain. TECHNIQUE: Two AP supine views of the abdomen and pelvis. COMPARISON: CT 04/09/21 FINDINGS: There is no bowel obstruction. There is air and stool to the level of the rectum. There are no definite urinary calculi identified. The right renal stone seen on the earlier CT is not clearly visualized on this radiograph. The visualized osseous structures are within normal limits. RAD/Abdomen Single View (Portable) IMPRESSION: No bowel obstruction. No definite urinary calculi identified. Electronically Signed: John Perla MD at 16:33 EDT Tel , Service support ,
[2021-04-09] MEDS: Smz/Tmp Ds Tablet 1 TABLET PO (16:00)
== END 2021-04-09 16:31 | disposition home or self-care (01) ==
PROVIDERS: Emergency Provider Student in an Organized Health Care Education/Training Program
DX: N13.2 Hydronephrosis with renal and ureteral calculous obstruction (principal)
CPT/HCPCS: 74018; 74176; 80048; 81001; 81025; 85025; 87086; 87088; 87186; 99283; J7040; A4216

== ENCOUNTER 2021-07-19 22:03 | Emergency (ER) | payer MEDICAID, SELFPAY ==
[2021-07-19 22:04] VITALS: BP 112/68; PULSE 113; RESP 14; TEMP 37.4; O2SAT 100; BMI 28.3
[2021-07-19 23:19] VITALS: BP 91/68; PULSE 100; RESP 18; O2SAT 96
--- NOTE | 2021-07-19 23:41 | EKG12_ITS ---
Test Reason : Blood Pressure : / mmHG Vent. Rate : 097 BPM Atrial Rate : 097 BPM P-R Int : 134 ms QRS Dur : 094 ms QT Int : 342 ms P-R-T Axes : 052 013 039 degrees QTc Int : 434 ms Normal sinus rhythm Normal ECG Confirmed by DANNY WINTER, MART ([id number]), desk editor JARVIS PAZ ([id number]) on 07/20/2021 9:25:37 AM Referred By: Confirmed By:MART DELGADO MD
--- NOTE | 2021-07-19 23:42 | EX.ED.DYSGE1 ---
HPI <Dr. Akin Rodriguez DO - Last Filed: 07/20/21 00:16> History of Present Illness Chief Complaint: Confusion Informant: patient and spouse/S.O. Narrative Narrative: 25-year-old female presenting to the emergency department with her . They tell me that the patient had a bilateral tubal ligation at the [facility] on 07/08. They tell me that it was a same-day surgery she was reevaluated on 07/09 in the emergency room where she had blood work and a CAT scan. She followed up on Monday with her [employer]ICE. She states that she cannot remember exactly what he said but they reynaldo blood and after reviewing the CAT scan said that something did not seem right. They called today and they were told that the blood work seems normal. The patient notes vomiting diarrhea diffuse abdominal pain and fevers. She denies any runny nose sore throat cough. No shortness of breath. states she seems confused. He had to help her put her pants on. PFSH <Dr. Akin Rodriguez DO - Last Filed: 07/20/21 00:16> PFSH Home Medications hydrocodone-acetaminophen 1 tab PO Q6H PRN PRN 3 Days #12 tablet 04/09/21 [Rx Last Taken Unknown] ondansetron 8 mg PO Q8H PRN PRN #20 tab 04/09/21 [Rx Last Taken Unknown] sulfamethoxazole-trimethoprim [Bactrim DS] 1 tab PO Q12H 10 Days #20 tab 04/09/21 [Rx Last Taken Unknown] Allergy/AdvReac Type Severity Reaction Status Date / Time latex Allergy Hives Verified 04/09/21 11:04 Surgical History History of tubal ligation Social History (Updated 07/19/21 @ 23:[address] Akin Rodriguez DO) Smoking Status: Never smoker substance use type: does not use ROS <Dr. Akin Rodriguez DO - Last Filed: 07/20/21 00:16> ROS ED ROS Narrative Generalized weakness. Constitutional Constitutional ED: Reports chills and fever(s); Denies weight loss Eyes Eyes: Denies change in vision or diplopia ENT ENT ED: Denies ear pain, rhinorrhea or sore throat Cardiovascular Cardiovascular: Denies chest pain, orthopnea, palpitations or racing heartbeat Respiratory/Chest Respiratory/Chest: Denies cough, dyspnea or orthopnea Gastrointestinal Gastrointestinal: Reports abdominal pain, diarrhea, nausea and vomiting Genitourinary Genitourinary ED: Denies dysuria, hematuria or urinary frequency Musculoskeletal Musculoskeletal: Denies arthralgias or myalgias Integumentary Denies abscess or rash Neurologic Neurologic: Reports other Details: Reported confusion ; Denies headache(s) or weakness Psychiatric Psychiatric: Denies anxiety, depression, suicidal ideation or suicidal thoughts Endocrine Endocrinology: Denies polydipsia, polyphagia or polyuria Allergic/Immunologic Allergic/Immunologic ED: Denies mouth swelling, tongue swelling or urticaria EXAM <Dr. Akin Rodriguez, DO - Last Filed: 07/20/21 00:16> Physical Exam Const Vital Signs: 07/19/21 22:04 07/19/21 23:19 07/20/21 00:01 Temperature 99.3 F H 99.7 F H Temperature Source Temporal Oral Pulse Rate 113 H 100 96 Respiratory Rate 14 18 17 Blood Pressure 112/68 91/68 102/67 Blood Pressure Mean 82 75 78 Pulse Ox 100 96 96 Oxygen Delivery Method Room Air Room Air Room Air 07/20/21 01:16 07/20/21 02:50 07/20/21 03:15 Temperature 100 F H 99.2 F H Temperature Source Oral Oral Pulse Rate 101 H 96 90 Respiratory Rate 16 17 15 Blood Pressure 115/68 101/62 113/72 Blood Pressure Mean 83 75 85 Pulse Ox 97 97 96 Oxygen Delivery Method Room Air Room Air Room Air Positive well nourished and well developed General Appearance ED: well developed HEENT Reports normocephalic, head/scalp atraumatic, TM's clear and moist mucous membranes Negative for trauma Tympanic Membrane ED: Yes TM's clear Eyes PERRL and EOMs intact bilaterally Neck no lymphadenopathy, supple and no JVD Resp normal respiratory effort and clear to auscultation bilaterally Cardio regular rate and no murmurs Rate: tachycardic GI non-tender GI Narrative: Laparoscopic surgical sites appear clean dry and intact. Diffuse tenderness to palpation. Auscultation: normoactive bowel sounds Palpation: soft; Negative for guarding or rebound tenderness present Back/Spine no CVA tenderness and normal ROM Extremity normal to inspection General Extremety ED: Negative for edema General Extremity: Negative for edema Neuro oriented x3 and CN's II-XII intact bilaterally Neuro Narrative: Patient appears slow to answer questions. Sensorium / Orientation: alert Motor Exam: strength 5/5 throughout Psych mental status grossly normal Mood & Affect: Negative for depressed or tearful Skin no rashes or lesions noted and no wounds <Dr. Bony Haney, DO - Last Filed: 07/20/21 04:42> Physical Exam Const Vital Signs: 07/19/21 22:04 07/19/21 23:19 07/20/21 00:01 Temperature 99.3 F H 99.7 F H Temperature Source Temporal Oral Pulse Rate 113 H 100 96 Respiratory Rate 14 18 17 Blood Pressure 112/68 91/68 102/67 Blood Pressure Mean 82 75 78 Pulse Ox 100 96 96 Oxygen Delivery Method Room Air Room Air Room Air 07/20/21 01:16 07/20/21 02:50 07/20/21 03:15 Temperature 100 F H 99.2 F H Temperature Source Oral Oral Pulse Rate 101 H 96 90 Respiratory Rate 16 17 15 Blood Pressure 115/68 101/62 113/72 Blood Pressure Mean 83 75 85 Pulse Ox 97 97 96 Oxygen Delivery Method Room Air Room Air Room Air MDM <Dr. Akin Rodriguez, DO - Last Filed: 07/20/21 00:16> MDM MDM Narrative Medical decision making narrative: Patient and her refused to be checked for Covid because they did not believe that Covid is a plausible diagnosis. Try to explain to them she has fever confusion vomiting and diarrhea and she was recently in the hospital on multiple days. They do not consent to a Covid test. I informed them that we will go ahead and check things and if everything is negative she would most likely need to be discharged and they can follow-up. At this point we will obtain blood work and a CT scan of the abdomen pelvis as well as an EKG. Care of the patient will be turned over to the night physician for final disposition Lab Data Labs: Laboratory Results - last 24 hr 07/19/21 07/19/21 07/19/21 23:56 23:56 23:56 WBC 16.5 H RBC 4.15 L Hgb 11.7 L Hct 35.8 L MCV 86.3 MCH 28.2 MCHC 32.7 RDW Std Deviation 38.5 RDW Coeff of Rylie 12.0 Plt Count 349 MPV 9.1 Immature Gran % (Auto) 0.500 Neut % (Auto) 86.5 H Lymph % (Auto) 7.5 L [place] % (Auto) 5.2 Eos % (Auto) 0.1 Baso % (Auto) 0.2 Absolute Neuts (auto) 14.2 H Absolute Lymphs (auto) 1.24 Nucleated RBC % 0 Sodium 135 L Potassium 3.8 Chloride 100 Carbon Dioxide 29.0 Anion Gap 6 BUN 6 L Creatinine 0.69 Estim Creat Clear Calc 101.31 Est GFR (MDRD) Af Amer 131 Est GFR (MDRD) Non-Af 109 BUN/Creatinine Ratio 8.7 L Glucose 129 H Lactic Acid 0.7 Calcium 8.7 Total Bilirubin 0.50 AST 27 ALT 38 Alkaline Phosphatase 137 H Troponin I High Sens 6 Total Protein 7.7 Albumin 2.5 L Globulin 5.2 H Albumin/Globulin Ratio 0.5 L Serum , Qual Urine Color Urine Clarity Urine pH Ur Specific [place] Urine Protein Urine Glucose (UA) Urine Ketones Urine Occult Blood Urine Nitrite Urine Bilirubin Urine Urobilinogen Ur Leukocyte Esterase Urine RBC Urine WBC Ur Squamous Epith Cells Urine Bacteria Urine Mucus 07/19/21 07/20/21 23:56 00:40 WBC RBC Hgb Hct MCV MCH MCHC RDW Std Deviation RDW Coeff of Rylie Plt Count MPV Immature Gran % (Auto) Neut % (Auto) Lymph % (Auto) [place] % (Auto) Eos % (Auto) Baso % (Auto) Absolute Neuts (auto) Absolute Lymphs (auto) Nucleated RBC % Sodium Potassium Chloride Carbon Dioxide Anion Gap BUN Creatinine Estim Creat Clear Calc Est GFR (MDRD) Af Amer Est GFR (MDRD) Non-Af BUN/Creatinine Ratio Glucose Lactic Acid Calcium Total Bilirubin AST ALT Alkaline Phosphatase Troponin I High Sens Total Protein Albumin Globulin Albumin/Globulin Ratio Serum , Qual NEGATIVE Urine Color Yellow Urine Clarity Sl. Cloudy Urine pH 6.0 Ur Specific [place] 1.020 Urine Protein 15 H Urine Glucose (UA) Normal Urine Ketones Negative Urine Occult Blood 10 H Urine Nitrite Negative Urine Bilirubin Negative Urine Urobilinogen Normal Ur Leukocyte Esterase Negative Urine RBC 0-5 SEEN Urine WBC 0-5 SEEN Ur Squamous Epith Cells 5-10 SEEN Urine Bacteria 3+ Urine Mucus 2+ Radiography Diagnostic Testing: Clinical Impression(s) from Imaging Studies Abdomen/Pelvis CT 07/20/21 00:15 IMPRESSION: Rectouterine pouch abscess with extension into both fallopian tubes, concerning for tubo-ovarian abscesses. Electronically Signed: Teto Ruiz MD at 2:14 EDT Tel , Service support , Chest X-Ray 07/20/21 00:25 IMPRESSION: No acute abnormal cardiopulmonary finding. Electronically Signed: Teto Ruiz MD at 1:33 EDT Tel , Service support , EKG Initial EKG: Attestation: I personally reviewed and interpreted this EKG as follows: Interpretation: Sinus Rhythm Comments: Sinus rhythm with a ventricular rate of 97 bpm <Dr. Bony Haney, DO - Last Filed: 07/20/21 04:42> [facility] Narrative Medical decision making narrative: Dr. Haney dictating. Patient was signed out to me for follow-up on blood work and imaging. Patient does have a 16.5 white blood cell count with a left shift. Renal function and electrolytes are normal. LFTs are normal with exception of an elevated alkaline phosphatase of 137. Troponin is 6. Serum is negative. Lactic acid 0.7. Urinalysis is negative for infection. Patient CT of the abdomen pelvis shows a rectouterine pouch abscess with extension into both fallopian tubes concerning for tubo-ovarian abscesses. I was able to talk to Dr. Nascimenot who did her previous tubal ligation. He was happy to accept her to pulmonary in hospital. He recommended that I give her 1 g of Rocephin, 500 mg of Flagyl, 3 g of Unasyn. I will discuss this with primary hospital and arrange transfer. He did request that I send a urine GC chlamydia before the antibiotics are started and this was sent. Patient will be transferred to [facility]. She will have to wait on transport due to limited EMS transport. She will likely be transported after 6 AM. She will be monitored until the transfer. Impression: 1. Tubo-ovarian abscess Lab Data Attestation: I reviewed the patient's lab results. Labs: Laboratory Results - last 24 hr 07/19/21 07/19/21 07/19/21 23:56 23:56 23:56 WBC 16.5 H RBC 4.15 L Hgb 11.7 L Hct 35.8 L MCV 86.3 MCH 28.2 MCHC 32.7 RDW Std Deviation 38.5 RDW Coeff of Rylie 12.0 Plt Count 349 MPV 9.1 Immature Gran % (Auto) 0.500 Neut % (Auto) 86.5 H Lymph % (Auto) 7.5 L [place] % (Auto) 5.2 Eos % (Auto) 0.1 Baso % (Auto) 0.2 Absolute Neuts (auto) 14.2 H Absolute Lymphs (auto) 1.24 Nucleated RBC % 0 Sodium 135 L Potassium 3.8 Chloride 100 Carbon Dioxide 29.0 Anion Gap 6 BUN 6 L Creatinine 0.69 Estim Creat Clear Calc 101.31 Est GFR (MDRD) Af Amer 131 Est GFR (MDRD) Non-Af 109 BUN/Creatinine Ratio 8.7 L Glucose 129 H Lactic Acid 0.7 Calcium 8.7 Total Bilirubin 0.50 AST 27 ALT 38 Alkaline Phosphatase 137 H Troponin I High Sens 6 Total Protein 7.7 Albumin 2.5 L Globulin 5.2 H Albumin/Globulin Ratio 0.5 L Serum , Qual Urine Color Urine Clarity Urine pH Ur Specific [place] Urine Protein Urine Glucose (UA) Urine Ketones Urine Occult Blood Urine Nitrite Urine Bilirubin Urine Urobilinogen Ur Leukocyte Esterase Urine RBC Urine WBC Ur Squamous Epith Cells Urine Bacteria Urine Mucus 07/19/21 07/20/21 23:56 00:40 WBC RBC Hgb Hct MCV MCH MCHC RDW Std Deviation RDW Coeff of Rylie Plt Count MPV Immature Gran % (Auto) Neut % (Auto) Lymph % (Auto) [place] % (Auto) Eos % (Auto) Baso % (Auto) Absolute Neuts (auto) Absolute Lymphs (auto) Nucleated RBC % Sodium Potassium Chloride Carbon Dioxide Anion Gap BUN Creatinine Estim Creat Clear Calc Est GFR (MDRD) Af Amer Est GFR (MDRD) Non-Af BUN/Creatinine Ratio Glucose Lactic Acid Calcium Total Bilirubin AST ALT Alkaline Phosphatase Troponin I High Sens Total Protein Albumin Globulin Albumin/Globulin Ratio Serum , Qual NEGATIVE Urine Color Yellow Urine Clarity Sl. Cloudy Urine pH 6.0 Ur Specific [place] 1.020 Urine Protein 15 H Urine Glucose (UA) Normal Urine Ketones Negative Urine Occult Blood 10 H Urine Nitrite Negative Urine Bilirubin Negative Urine Urobilinogen Normal Ur Leukocyte Esterase Negative Urine RBC 0-5 SEEN Urine WBC 0-5 SEEN Ur Squamous Epith Cells 5-10 SEEN Urine Bacteria 3+ Urine Mucus 2+ Radiography Diagnostic Testing: Clinical Impression(s) from Imaging Studies Abdomen/Pelvis CT 07/20/21 00:15 IMPRESSION: Rectouterine pouch abscess with extension into both fallopian tubes, concerning for tubo-ovarian abscesses. Electronically Signed: Teto Ruiz MD at 2:14 EDT Tel , Service support , Chest X-Ray 07/20/21 00:25 IMPRESSION: No acute abnormal cardiopulmonary finding. Electronically Signed: Teto Ruiz MD at 1:33 EDT Tel , Service support , Discharge Plan Triage Chief Complaint: Confusion Other Complaint: Abd Pain ED Provider: Bony Haney Dx/Rx/DC Orders Prescriptions: No Action hydrocodone-acetaminophen 5-325 mg tablet 1 tab PO Q6H PRN PRN (Reason: Pain) 3 Days Qty: 12 RF: 0 ondansetron 4 mg tablet,disintegrating 8 mg PO Q8H PRN PRN (Reason: Nausea) Qty: 20 RF: 0 sulfamethoxazole-trimethoprim [Bactrim DS] 800-160 mg tablet 1 tab PO Q12H 10 Days Qty: 20 RF: 0 Primary Care Provider: Magi Lacey
[2021-07-19] MEDS: 0.9% Normal Saline 1,000 ML 1000 ML IV (23:59)
[2021-07-20] MEDS: Ondansetron 4 MG/2 ML Vial IV
[2021-07-20 00:01] VITALS: BP 102/67; PULSE 96; RESP 17; TEMP 37.6; O2SAT 96
[2021-07-20 00:04] LABS: Absolute Lymphocyte Count 1.24 X10^3/uL (0.83-4.51); Absolute Neutrophil Count 14.2 X10^3/uL (2.0-7.7); Basophil# 0.03 X10^3/uL; Basophil% 0.2 % (0-1); Eosinophil# 0.02 X10^3/uL; Eosinophils% 0.1 % (0-5); Hematocrit 35.8 % (37-47); Hemoglobin 11.7 g/dL (12.0-15.0); Lymphocyte # 1.24 X10^3/ul (0.83-4.51); Lymphocyte % 7.5 % (19-41); Mean Corp Hgb Conc 32.7 g/dL (32-36); Mean Corpuscular Hgb 28.2 pg (27.0-32.0); Mean Corpuscular Volume 86.3 fL (81-99); Mean Platelet Vol. 9.1 fl (6.2-12.0); Monocyte# 0.86 X10^3/uL; Monocyte% 5.2 % (0-10); NRBC Flagged by Analyzer 0 % (0-5); Neutrophil # 14.23 X10^3/uL (2.7-7.7); Neutrophil % 86.5 % (47-70); Platelet Count 349 K/mm3 (150-450); RBC Distribution Width SD 38.5 fl (35.1-43.9); Red Blood Count 4.15 M/mm3 (4.2-5.4); White Blood Count 16.5 K/mm3 (4.4-11.0)
--- NOTE | 2021-07-20 00:15 | CT_ITS ---
STUDY: CT ABDOMEN AND PELVIS WITH CONTRAST REASON FOR EXAM: Female, 25 years old. Abdominal pain -- IV PO Contrast; low abdominal pain, recent tubal ligation RADIATION DOSAGE (If Supplied By Facility): CTDIvol = ( 17.02 ) mGy, DLP = ( 1620.06 ) mGycm TECHNIQUE: Transaxial images were obtained from the dome of the diaphragm to the symphysis pubis without oral contrast. Oral and amp; IV Gastrografin and amp; 100mL Isovue-300 was administered. Sagittal and coronal images were reconstructed. Individualized dose optimization techniques were used for this CT. COMPARISON: None. FINDINGS: Mild bilateral dependent atelectasis. The visualized portions of the heart are within normal limits. Normal liver. Normal gallbladder and extrahepatic biliary system. Normal spleen. Normal pancreas. Normal bilateral adrenal glands. Normal right kidney. Normal left kidney. Normal visualized stomach. Normal small intestine. Normal colon. The appendix is visualized and appears normal. Normal abdominal aorta. Normal inferior vena cava. Normal retroperitoneum. Normal urinary bladder. Bilateral adnexal tubular fluid and a 5.2 cm rectouterine pouch fluid collection in continuity. There is surrounding fat stranding and mild free fluid that extends into the right and left lower abdominal quadrant. Reactive wall thickening is noted of the cecum and terminal ileum. Small amount of gas in the lower abdominal soft tissues is presumably postoperative. Thoracolumbar vertebral alignment is maintained. CT/Abdomen/Pelvis WITH Contrast IMPRESSION: Rectouterine pouch abscess with extension into both fallopian tubes, concerning for tubo-ovarian abscesses. Electronically Signed: Teto Ruiz MD at 2:14 EDT Tel , Service support ,
[2021-07-20 00:17] LABS: Internal QC Validated? YES +Cl - CLEAR BKGD; Pregnancy, Serum, hCG Quali. NEGATIVE Negative
--- NOTE | 2021-07-20 00:17 | ED.RN ---
patient and refuse covid test. dr. davison notified.
--- NOTE | 2021-07-20 00:25 | RAD_ITS ---
STUDY: X-RAY CHEST REASON FOR EXAM: Female, 25 years old. Fever TECHNIQUE: Portable, upright, AP chest radiograph COMPARISON: 02/05/2016 FINDINGS: The lungs are clear and expanded. There is no demonstrated pleural abnormality. Normal size heart. Normal mediastinum and roberto. Normal visualized pulmonary arteries. Normal visualized aortic arch and descending thoracic aorta. Normal visualized thoracic spine. Normal visualized ribs, clavicles, and shoulders. There is no demonstrated abnormality of the visualized soft tissue structures of the upper abdomen. RAD/Chest 1 View (Portable) IMPRESSION: No acute abnormal cardiopulmonary finding. Electronically Signed: Teto Ruiz MD at 1:33 EDT Tel , Service support ,
[2021-07-20 00:27] LABS: ALB/GLOB Ratio 0.5 RATIO (0.9-2.4); AST(SGOT) 27 U/L (15-37); Alanine Aminotransfer ALT/SGPT 38 U/L (13-56); Albumin, Serum 2.5 g/dL (3.2-5.0); Alkaline Phosphatase 137 U/L (45-117); Anion Gap 6 (5-15); BUN 6 mg/dL (7-18); BUN/Creat Ratio 8.7 RATIO (10-20); Calcium,Total 8.7 mg/dL (8.5-10.1); Chloride 100 mmol/L (98-107); Creatinine, Serum 0.69 mg/dL (0.55-1.02); EST Glomerular Filtration Rate 109 mL/min (>60); Est Glom Filt Rate - Afr Amer 131 mL/min (>60); Estimated Creatinine Clearance 101.31 ml/min; Globulin 5.2 g/dL (2.2-4.2); Glucose 129 mg/dL (74-106); Lactic Acid 0.7 mmol/L (0.4-1.9); Potassium 3.8 mmol/L (3.5-5.1); Protein, Total 7.7 g/dL (6.4-8.2); Sodium Level 135 mmol/L (136-145); Troponin-I HS 6 pg/mL (3.0-54.0)
[2021-07-20 00:49] LABS: Color, Urine Yellow (Yellow); Glucose, Dipstick Normal (Normal); Ketone-Dipstick Negative (Negative); Leukocyte Esterase-Dipstick Negative /ul (Negative); Nitrite-Dipstick Negative (Negative); Occult Blood-Urine 10 /ul (Negative); Protein-Dipstick 15 mg/dl (Negative); Urine Bilirubin Dipstick Negative (Negative); Urine Clarity Sl. Cloudy (Clear); Urine Urobilinogen Normal (Normal)
[2021-07-20 00:56] LABS: Bacteria 3+ /hpf (None Seen); Red Blood Cells-Urine 0-5 SEEN /hpf (0-5); White Blood Cells 0-5 SEEN /hpf (0-5)
[2021-07-20 00:57] LABS: Mucous, Urine 2+ /hpf (<or=2+); Squamous Epithelial Cells - UA 5-10 SEEN /hpf (5-10)
[2021-07-20 01:16] VITALS: BP 115/68; PULSE 101; RESP 16; TEMP 37.7; O2SAT 97
[2021-07-20] MEDS: 0.9% Normal Saline 1,000 ML 125 ML IV (02:10)
[2021-07-20 02:50] VITALS: BP 101/62; PULSE 96; RESP 17; TEMP 37.3; O2SAT 97
[2021-07-20 03:15] VITALS: BP 113/72; PULSE 90; RESP 15; O2SAT 96
[2021-07-20] MEDS: Ceftriaxone 1 GM/50 ML BAG IV (03:37)
--- NOTE | 2021-07-20 04:21 | ED.RN ---
CALLED PHYSICIANS AND THE ETA WOULD BE 3-4 HOURS, ASKED TO OUTSOURCE THEY SAID THAT [facility] HAD SENT THEIR CREW OUT TO [place].
[2021-07-20 05:04] VITALS: BP 106/70; PULSE 92; RESP 16; TEMP 36.6; O2SAT 95
[2021-07-20] MEDS: metroNIDAZOLE 500 MG/100 ML BAG 100 MG IV (05:12)
[2021-07-20 05:43] LABS: Chlamydia Trachomatis by PCR Negative (Negative); Neisserai gonorrhoeae by PCR Negative (Negative); Probe Check PASS; Specimen Processing Control PASS
[2021-07-20 05:44] LABS: Sample Adequacy Control PASS
[2021-07-20 06:25] VITALS: TEMP 37.3
== END 2021-07-20 06:58 | disposition short-term general hospital (02) ==
PROVIDERS: Student in an Organized Health Care Education/Training Program; Emergency Provider Emergency Medicine; PCP Family Medicine
DX: N70.93 Salpingitis and oophoritis, unspecified (principal); Z98.51 Tubal ligation status
CPT/HCPCS: 71045; 74177; 80053; 81001; 83605; 84484; 84703; 85025; 87491; 87591; 93005; 96361; 96365; 96367; 96368; 96374; 99285; J7030; Q9967; A4216; J0295; J2405

== ENCOUNTER 2022-07-01 17:40 | Emergency (ER) | payer BC, MEDICAID, SELFPAY ==
[2022-07-01 17:40] VITALS: BP 125/77; PULSE 60; RESP 14; TEMP 35.9; O2SAT 100; BMI 29.5
--- NOTE | 2022-07-01 18:11 | EKG12_ITS ---
Test Reason : CP Blood Pressure : / mmHG Vent. Rate : 064 BPM Atrial Rate : 064 BPM P-R Int : 126 ms QRS Dur : 090 ms QT Int : 394 ms P-R-T Axes : 044 009 015 degrees QTc Int : 406 ms Normal sinus rhythm Normal ECG Confirmed by DANNY WINTER, MART ([id number]), manager editorial JARVIS PAZ ([id number]) on 07/04/2022 10:14:05 AM Referred By: MADINA Confirmed By:MART DELGADO MD
--- NOTE | 2022-07-01 18:12 | EDS_ITS ---
HPI History of Present Illness Chief Complaint: Chest Pain Informant: patient Narrative Narrative: 26-year-old female presented to the emergency room for the evaluation of chest pain. Patient states that her right arm has felt numb and jellylike for 2 weeks. Its gotten worse and now she has developed right-sided chest discomfort which she describes as worse with pushing on it. She states is difficult for her to take a deep breath. She states at times she feels disoriented. She has had no fevers. She was seen at outside medical facility 2 days ago was told that she had a urinary tract infection. She has not followed up with anybody or made follow-up appointment. No fevers. No significant cough. PFSH PFSH Medical History no medical history no medical history Home Medications sulfamethoxazole 800 mg-trimethoprim 160 mg tablet (Bactrim DS) 1 tab PO Q12H 10 days #20 tabs 04/09/21 [Rx Last Taken Unknown] Allergy/AdvReac Type Severity Reaction Status Date / Time latex Allergy Hives Verified 07/01/22 17:40 Surgical History History of tubal ligation Social History Smoking Status: Never smoker substance use type: does not use ROS ROS ED Constitutional Constitutional ED: Denies chills or weight loss Eyes Eyes: Denies change in vision or diplopia ENT ENT ED: Denies ear pain, rhinorrhea or sore throat Cardiovascular Cardiovascular: Reports chest pain; Denies orthopnea, palpitations or racing heartbeat Respiratory/Chest Respiratory/Chest: Denies cough, dyspnea or orthopnea Gastrointestinal Gastrointestinal: Denies abdominal pain, diarrhea, nausea or vomiting Genitourinary Genitourinary ED: Denies dysuria, hematuria or urinary frequency Musculoskeletal Musculoskeletal: Denies arthralgias or myalgias Integumentary Denies abscess or rash Neurologic Neurologic: Reports paresthesias; Denies headache(s) or weakness Psychiatric Psychiatric: Denies anxiety, depression, suicidal ideation or suicidal thoughts Endocrine Endocrinology: Denies polydipsia, polyphagia or polyuria Allergic/Immunologic Allergic/Immunologic ED: Denies mouth swelling, tongue swelling or urticaria EXAM Physical Exam Const Vital Signs: 07/01/22 17:40 07/01/22 18:04 07/01/22 19:40 Temperature 96.7 F L Temperature Source Temporal Pulse Rate 60 62 Respiratory Rate 14 13 Respiratory Effort Short of Breath Blood Pressure 125/77 H 91/79 Blood Pressure Mean 93 83 Pulse Ox 100 99 Oxygen Delivery Method Room Air Room Air Positive well nourished and well developed General Appearance ED: well developed HEENT Reports normocephalic, head/scalp atraumatic and moist mucous membranes Eyes PERRL and EOMs intact bilaterally Neck no lymphadenopathy, supple and no JVD Chest Wall Chest Narrative: Right chest wall tenderness to palpation Chest: tenderness Resp normal respiratory effort and clear to auscultation bilaterally Cardio regular rate, regular rhythm and no murmurs GI normal to inspection, nondistended, normoactive bowel sounds and non-tender Palpation: soft Back/Spine no CVA tenderness and normal ROM Extremity normal to inspection General Extremety ED: Negative for edema General Extremity: Negative for edema Neuro oriented x3 and CN's II-XII intact bilaterally Sensorium / Orientation: alert Motor Exam: strength 5/5 throughout Psych mental status grossly normal Mood & Affect: Negative for depressed or tearful Skin no rashes or lesions noted and no wounds MDM MDM MDM Narrative Medical decision making narrative: The patient's blood work showed a white count of 2.8 hemoglobin 11.1. D-dimer is elevated at 1.55. Troponin is less than 3. Interpretation of chest x-ray is no acute findings. Because of the chest pain and her elevated D-dimer a CTA of the chest was ordered which was negative for embolism or dissection. This point her vital signs are stable I do not see anything emergent. Her symptoms are a bit out of the box. I feel confident that she can follow-up with primary care. Lab Data Attestation: I reviewed the patient's lab results. Labs: Laboratory Results - last 24 hr 07/01/22 07/01/22 07/01/22 18:00 18:00 18:00 WBC 2.8 L RBC 3.67 L Hgb 11.1 L Hct 32.3 L MCV 88.0 MCH 30.2 MCHC 34.4 RDW Std Deviation 40.0 RDW Coeff of Rylie 12.4 Plt Count 116 L MPV 10.5 Immature Gran % (Auto) 0.000 Neut % (Auto) 60.0 Lymph % (Auto) 24.2 [place] % (Auto) 14.4 H Eos % (Auto) 1.4 Baso % (Auto) 0.0 Absolute Neuts (auto) 1.7 L Absolute Lymphs (auto) 0.67 L Nucleated RBC % 0 D-Dimer Quant (PE/DVT) 1.55 H* Sodium 141 Potassium 3.7 Chloride 109 H Carbon Dioxide 26.0 Anion Gap 6 BUN 11 Creatinine 0.73 Estim Creat Clear Calc 94.91 Est GFR (MDRD) Af Amer 122 Est GFR (MDRD) Non-Af 101 BUN/Creatinine Ratio 15.1 Glucose 118 H Calcium 8.7 Troponin I High Sens < 3 L Radiography Diagnostic Testing: Clinical Impression(s) from Imaging Studies Chest X-Ray 07/01/22 18:15 IMPRESSION: There are no acute findings. Electronically Signed: Chirag Little MD at 18:40 EDT , Chest CTA 07/01/22 19:00 IMPRESSION: Negative CTA chest. Electronically Signed: Chirag Little MD at 19:56 EDT , EKG Initial EKG: Attestation: I personally reviewed and interpreted this EKG as follows: Comments: Normal sinus rhythm ventricular rate of 64 bpm Discharge Plan Triage Chief Complaint: Chest Pain ED Provider: Akin Rodriguez Dx/Rx/DC Orders Clinical Impression: Chest pain, Arm paresthesia, right Instructions: ED Chest Pain, Noncardiac Prescriptions: No Action sulfamethoxazole-trimethoprim [Bactrim DS] 800-160 mg tablet 1 tab PO Q12H 10 Days Qty: 20 0RF Primary Care Provider: Magi Lacey Referrals: Magi Lacey DO [Primary Care Provider] - 3-5 Days if not improving Disposition Disposition: Home, Self Care
--- NOTE | 2022-07-01 18:15 | RAD_ITS ---
STUDY: X-RAY CHEST REASON FOR EXAM: Female, 26 years old. CHEST PAIN chest pain TECHNIQUE: XR Chest 1 View COMPARISON: 07/20/2021 FINDINGS: There is no demonstrated pleural abnormality. Normal size heart. Normal mediastinum and roberto. Normal visualized pulmonary arteries. Normal visualized aortic arch and descending thoracic aorta. Normal visualized thoracic spine. Normal visualized ribs, clavicles, and shoulders. There is no demonstrated abnormality of the visualized soft tissue structures of the upper abdomen. RAD/Chest 1 View (Portable) IMPRESSION: There are no acute findings. Electronically Signed: Chirag iLttle MD at 18:40 EDT ,
[2022-07-01 18:28] LABS: Absolute Lymphocyte Count 0.67 X10^3/uL (0.83-4.51); Absolute Neutrophil Count 1.7 X10^3/uL (2.0-7.7); Eosinophil# 0.04 X10^3/uL; Eosinophils% 1.4 % (0-5); Hematocrit 32.3 % (37-47); Hemoglobin 11.1 g/dL (12.0-15.0); Lymphocyte # 0.67 X10^3/ul (0.83-4.51); Lymphocyte % 24.2 % (19-41); Mean Corp Hgb Conc 34.4 g/dL (32-36); Mean Corpuscular Hgb 30.2 pg (27.0-32.0); Mean Platelet Vol. 10.5 fl (6.2-12.0); Monocyte% 14.4 % (0-10); NRBC Flagged by Analyzer 0 % (0-5); Neutrophil # 1.66 X10^3/uL (2.7-7.7); Platelet Count 116 K/mm3 (150-450); RBC Distribution Width CV 12.4 % (11.6-14.6); Red Blood Count 3.67 M/mm3 (4.2-5.4); White Blood Count 2.8 K/mm3 (4.4-11.0)
[2022-07-01 18:42] LABS: Anion Gap 6 (5-15); BUN 11 mg/dL (7-18); BUN/Creat Ratio 15.1 RATIO (10-20); Calcium,Total 8.7 mg/dL (8.5-10.1); Chloride 109 mmol/L (98-107); Creatinine, Serum 0.73 mg/dL (0.55-1.02); EST Glomerular Filtration Rate 101 mL/min (>60); Est Glom Filt Rate - Afr Amer 122 mL/min (>60); Estimated Creatinine Clearance 94.91 ml/min; Glucose 118 mg/dL (74-106); Potassium 3.7 mmol/L (3.5-5.1); Sodium Level 141 mmol/L (136-145); Troponin-I HS < 3 pg/mL (3.0-54.0)
[2022-07-01 18:54] LABS: D-Dimer Quantitative (DVT/PE) 1.55 FEU/ug/m (0.27-0.49)
--- NOTE | 2022-07-01 19:00 | CT_ITS ---
EXAM: CT ANGIOGRAPHY CHEST WITHOUT AND WITH INTRAVENOUS CONTRAST CLINICAL INDICATION: pulmonary embolism TECHNIQUE: Helically acquired angiography images were obtained of the chest without and with intravenous contrast. This CT exam was performed using one or more of the following dose reduction techniques: automated exposure control, adjustment of the mA and/or kV according to patient size, and/or use of iterative reconstruction technique. This report was created using [employer] report generation technology. MIP reconstructed images were created and reviewed. CONTRAST: IV 100mL Isovue-[id number] RADIATION DOSE: CTDIvol = 13.13 mGy, DLP = 389.96 mGy-cm COMPARISON: None. FINDINGS: PULMONARY ARTERIES: Unremarkable. Normal in caliber. No evidence of pulmonary embolism. AORTA: Unremarkable. Normal in caliber. No evidence of dissection. GREAT VESSELS OF AORTIC ARCH: Unremarkable. Normal in caliber. No evidence of dissection. LUNGS AND PLEURAL SPACES: Unremarkable. No mass. No consolidation or edema. No pleural effusion or thickening. No pneumothorax. HEART: Unremarkable. Heart size is normal. No pericardial effusion. No signs of right heart strain, ratio of right ventricle to left ventricle measures less than 1. MEDIASTINUM: Unremarkable. No mediastinal or hilar adenopathy. Esophagus is unremarkable. No hiatal hernia. THYROID: Unremarkable. No thyroid lesions. BONES/JOINTS: Unremarkable. No suspicious lytic or blastic abnormality. CT/CTA Chest W/WO Contrast IMPRESSION: Negative CTA chest. Electronically Signed: Chirag Little MD at 19:56 EDT Reading Location ID and State: [facility] / [place] , Service support ,
[2022-07-01 19:40] VITALS: BP 91/79; PULSE 62; RESP 13; O2SAT 99
[2022-07-01 20:21] VITALS: BP 105/66; PULSE 67; RESP 20; TEMP 36.6; O2SAT 100
== END 2022-07-01 20:29 | disposition home or self-care (01) ==
PROVIDERS: Emergency Provider Emergency Medicine; PCP Family Medicine; Visit Provider Emergency Medicine
DX: R07.9 Chest pain, unspecified (principal); R20.2 Paresthesia of skin; R79.89 Other specified abnormal findings of blood chemistry
CPT/HCPCS: 71045; 71275; 80048; 84484; 85025; 85379; 93005; 99284; Q9967; A4216

== ENCOUNTER → 2023-04-24 | Outpatient (CLI) | payer MEDICAID, SELFPAY ==
[2023-04-24 16:42] LABS: Hematocrit 37.5 % (37-47); Hemoglobin 12.7 g/dL (12.0-15.0); Mean Corp Hgb Conc 33.9 g/dL (32-36); Mean Corpuscular Hgb 30.4 pg (27.0-32.0); Mean Corpuscular Volume 89.7 fL (81-99); Mean Platelet Vol. 10.2 fl (6.2-12.0); Platelet Count 226 K/mm3 (150-450); RBC Distribution Width CV 12.2 % (11.6-14.6); RBC Distribution Width SD 39.4 fl (35.1-43.9); Red Blood Count 4.18 M/mm3 (4.2-5.4); White Blood Count 9.4 K/mm3 (4.4-11.0)
[2023-04-24 17:28] LABS: ALB/GLOB Ratio 0.8 RATIO (0.9-2.4); AST(SGOT) 15 U/L (15-37); Alanine Aminotransfer ALT/SGPT 20 U/L (13-56); Albumin, Serum 3.6 g/dL (3.2-5.0); Alkaline Phosphatase 77 U/L (45-117); Anion Gap 3 (5-15); BUN 17 mg/dL (7-18); BUN/Creat Ratio 23.1 RATIO (10-20); Calcium,Total 9.3 mg/dL (8.5-10.1); Chloride 104 mmol/L (98-107); Creatinine, Serum 0.74 mg/dL (0.55-1.02); EST Glomerular Filtration Rate 99 mL/min (>60); Est Glom Filt Rate - Afr Amer 120 mL/min (>60); Free T3 2.5 pg/mL (2.18-3.98); Globulin 4.4 g/dL (2.2-4.2); Glucose 95 mg/dL (74-106); Potassium 4.4 mmol/L (3.5-5.1); Sodium Level 134 mmol/L (136-145); T3 Uptake 34 % (30-39); T4 Free Direct 1.04 ng/dL (0.76-1.46); Thyroid Stim Hormone (TSH) 1.36 uIU/mL (0.358-3.74)
[2023-04-24 18:07] LABS: T7 / Free Thyroxin Index 0.4 (1.4-4.5)
[2023-04-26 04:12] LABS: Thyroid Peroxidase AB < 9 IU/mL (0-34)
== END | disposition home or self-care (01) ==
LOC: LAB 15:49
PROVIDERS: PCP Family Medicine
DX: E87.1 Hypo-osmolality and hyponatremia (principal)
CPT/HCPCS: 36415; 80053; 84439; 84443; 84479; 84481; 85027; 86376